=== PATIENT | female | born 1980 | race Hispanic/Latino ===

== ENCOUNTER 2019-03-04 08:13 | Outpatient (CLI) | payer OTHER ==
--- NOTE | 2019-03-04 08:59 | ULT ---
SONOGRAM RIGHT UPPER QUADRANT: Date: 03/04/19 HISTORY: Right upper quadrant pain. FINDINGS: Small, shadowing stones are present throughout the gallbladder lumen. No gallbladder wall thickening or pericholecystic fluid. Common duct is 0.3 cm. Liver unremarkable without focal mass or intrahepati c biliary dilatation. No free fluid. IMPRESSION: Cholelithiasis. No evidence of acute biliary obstruction. POS: T[facility]
== END 2019-03-04 08:14 | disposition home or self-care (01) ==
LOC: ULT 08:13
PROVIDERS: ATTEND Family Medicine
DX: R10.11 Right upper quadrant pain (principal); K80.20 Calculus of gallbladder without cholecystitis without obstruction
CPT/HCPCS: 76705

== ENCOUNTER 2019-03-23 06:44 | Day surgery (SDC) | payer OTHER ==
--- NOTE | 2019-03-22 12:48 | HP ---
HISTORY OF PRESENT ILLNESS: Esperanza Nava is a 38-year-old female, recently moved from [place] with her who is security employment [employer]. The patient has had since October episodes of right upper quadrant pain, right flank radiation, right shoulder involvement, episodic spicy food, postprandial intake. She has had ultrasound demonstrated 3 mm bile duct and gallstones. Recent laboratories reveal normal liver function tests, lipase and CBC. Plan is for laparoscopic cholecystectomy outpatient. White count 12, hemoglobin 12, and platelet count 362,000. Amylase normal, BUN 12, creatinine 0.67, sodium 140, potassium 4.0, chloride 101, carbon dioxide 27. Liver function tests normal. She is referred by Dr. Brown. SOCIAL HISTORY: Tobacco, none. Alcohol, none. MEDICATIONS: 1. Iron. 2. Multivitamin. 3. Zyrtec. PAST SURGICAL HISTORY: She has had in [place] 2001 total abdominal colectomy with staged ileoanal pouch and closure of her diversion. She has normal bowel function. 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 REVIEW OF SYSTEMS: Noncontributory. She is 1, para 1 with twins, 4-year-old boy and a girl. 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 PHYSICAL EXAMINATION: VITAL SIGNS: Weight 164 pounds, 5 feet 6 inches, 26 BMI, blood pressure 123/77, heart rate 74, temperature 99.7 degrees. HEAD, EARS, EYES, NOSE AND THROAT: Unremarkable. Sclerae nonicteric. SKIN: Nonjaundiced. LUNGS: Clear to auscultation. CARDIAC: Regular rate and rhythm without murmur or gallop. ABDOMEN: Soft and nontender. Midline incision from above the umbilicus to the pubis, well healed without hernias. Mild tenderness right upper quadrant with mild guarding. No anup peritoneal signs. EXTREMITIES: Unremarkable. No ankle edema. Palpable pedal pulses. No lymphadenopathy in neck, axilla, or groin. ASSESSMENT AND PLAN: Cholecystitis chronic with cholelithiasis. We would recommend laparoscopic video cholecystectomy. Risk of infection, bleeding, visceral and biliary injury, open procedure discussed. Questions answered. Job ID: [id number]
[2019-03-22 13:41] VITALS: BMI 25.0
[2019-03-23] MEDS ORDERED: Levofloxacin 500 mg/D5W 100 ml Premix Bag ONE (07:05)
[2019-03-23 07:39] LABS: BHCG - Serum Negative (NEGATIVE); Pregs Control Background? CLEAR/WHITE (CLR/WHITE); Pregs Control Bar Appear? YES (CONTROL BAR)
[2019-03-23] MEDS ORDERED: Ketorolac Tromethamine 30 MG/ML VIAL ONE (07:45)
[2019-03-23] MEDS ORDERED: Bupivacaine HCl 0.5%/Epinephrine 1:200,000/PF 30 ml Vial ONE (08:16)
[2019-03-23] MEDS ORDERED: Midazolam HCl 2 mg/2 ml Vial ONE (08:21)
[2019-03-23] MEDS ORDERED: Fentanyl 100 MCG/2 ML VIAL ONE (08:23)
[2019-03-23] MEDS ORDERED: Scopolamine 1.5 mg/72 hour Patch ONE (08:35)
[2019-03-23] MEDS ORDERED: PROPOFOL 200 MG/20 ML VIAL ONE (13:56)
[2019-03-23] MEDS ORDERED: Dexamethasone 20 MG/5 ML VIAL ONE (13:56)
[2019-03-23] MEDS ORDERED: Ondansetron PF 4 MG/2 ML Vial ONE (13:56)
[2019-03-23] MEDS ORDERED: Glycopyrrolate 0.2 MG/ML 5 ML SYRINGE ONE (13:56)
[2019-03-23] MEDS ORDERED: Lidocaine 1% PF 5 ML VIAL ONE (13:56)
[2019-03-23] MEDS ORDERED: Rocuronium Bromide 10 MG/ML (10ML VIAL) ONE (13:56)
--- NOTE | 2019-03-23 15:04 | OP ---
DATE OF PROCEDURE: 03/23/2019 PREOPERATIVE DIAGNOSES: Chronic cholecystitis, cholelithiasis, history of Crohn disease with total colectomy, ileoanal pouch, and closure ileostomy diversion in the past years. POSTOPERATIVE DIAGNOSES: Chronic cholecystitis, cholelithiasis, history of Crohn disease with total colectomy, ileoanal pouch, and closure ileostomy diversion in the past years. PROCEDURE PERFORMED: Laparoscopic video cholecystectomy. ANESTHESIA: General, local 0.5% Marcaine with epinephrine 30 mL. DESCRIPTION OF PROCEDURE: The patient was taken to the operating room, where under general anesthesia, abdomen was prepared with ChloraPrep and draped in routine fashion. Local anesthetic with 0.5% Marcaine with epinephrine, total volume 30 mL used, infiltrated in the skin and subcutaneous tissue at each port site. Pneumoperitoneum to 15 mmHg obtained with a Veress needle, replaced with a 5 port and laparoscope inserted. Right subxiphoid incision was made and 11 port placed, right subcostal incision was made, midclavicular, and anterior axillary line, 5 port was placed. Fundus of the gallbladder was grasped at cephalad. Infundibulum was grasped at the lateral. Liver appeared to be normal. Cystic artery and duct dissected free. Critical view obtained. Cystic artery and duct doubly clipped and proximally divided. Gallbladder dissected free from liver bed obtaining good hemostasis prior to division of the final peritoneal attachments. Gallbladder and contents removed. Good hemostasis was ensured with cautery. Irrigant and pneumoperitoneum evacuated. All instruments removed and all skin incisions were approximated with interrupted subdermal 4-0 Monocryl and [place] glue applied. Job ID: [id number]
== END 2019-03-23 11:55 | disposition home or self-care (01) ==
LOC: SDC 06:44
PROVIDERS: ATTEND Specialist
PROC: 0FT44ZZ Resection of Gallbladder, Percutaneous Endoscopic Approach (ICD-10-PCS; principal; 2019-03-23)
DX: K80.10 Calculus of gallbladder with chronic cholecystitis without obstruction (principal); D64.9 Anemia, unspecified; Z79.51 Long term (current) use of inhaled steroids; Z79.899 Other long term (current) drug therapy
CPT/HCPCS: 84703; 88304; J0131; J0670; J1100; J1885; J1956; J2001; J2250; J2405; J2704; J3010

== ENCOUNTER 2020-05-15 09:20 | Outpatient (CLI) | payer OTHER ==
--- NOTE | 2020-05-15 09:55 | MMO ---
Bilateral MAMMO Bilat Screen [facility]. CLINICAL HISTORY: Patient is 39 years old and is seen for screening. The patient has the following family history of breast cancer: mother, at age 69. VIEWS: The views performed were: bilateral craniocaudal with tomosynthesis and bilateral mediolateral oblique with tomosynthesis. This study has been interpreted with the assistance of computer-aided detection. MAMMOGRAM FINDINGS: The breasts are heterogeneously dense, which could obscure a lesion on mammography. There are no suspicious masses, suspicious calcifications, or new areas of architectural distortion. IMPRESSION: THERE IS NO MAMMOGRAPHIC EVIDENCE OF MALIGNANCY. A ROUTINE FOLLOW-UP MAMMOGRAM IN 1 YEAR IS RECOMMENDED. THE RESULTS OF THIS EXAM WERE SENT TO THE PATIENT. ACR BI-RADS Category 1 - Negative MAMMOGRAPHY NOTE: 1. A negative mammogram report should not delay a biopsy if a dominant of clinically suspicious mass is present. 2. Approximately 10% to 15% of breast cancers are not detected by mammography. 3. Adenosis and dense breasts may obscure an underlying neoplasm. Reported by: SANAZ MERCER MD Electonically Signed: [id number]
== END 2020-05-15 09:21 | disposition home or self-care (01) ==
LOC: BICMAMMO 09:20
PROVIDERS: ATTEND Obstetrics & Gynecology
DX: Z12.31 Encounter for screening mammogram for malignant neoplasm of breast (principal); Z80.3 Family history of malignant neoplasm of breast
CPT/HCPCS: 77063; 77067

== ENCOUNTER 2020-05-25 12:54 | Outpatient (CLI) | payer OTHER ==
--- NOTE | 2020-05-25 13:51 | ULT ---
THYROID ULTRASOUND: 05/25/20 INDICATIONS: Thyroid nodule given as reason for exam. No comparison studies. Both lobes of the thyroid are homogeneous and show normal size and appearance. Right lobe measures 4. 5 x 1.1 x 1.1 cm. Right lobe measures 4.3 x 1.9 x 1.4 cm. The isthmus appears normal. No evidence of nodule identified. IMPRESSION: Normal thyroid ultrasound exam. POS: AH
== END 2020-05-25 12:55 | disposition home or self-care (01) ==
LOC: SCSULT 12:54
PROVIDERS: ATTEND Family Medicine
DX: E04.1 Nontoxic single thyroid nodule (principal)
CPT/HCPCS: 76536

== ENCOUNTER 2021-07-30 12:08 | Outpatient (CLI) | payer OTHER, BC | END 2021-07-30 12:09 | disposition home or self-care (01) | LOC: BICMAMMO 12:08 | PROVIDERS: ATTEND Obstetrics & Gynecology | DX: Z12.31 Encounter for screening mammogram for malignant neoplasm of breast (principal); Z80.3 Family history of malignant neoplasm of breast | CPT/HCPCS: 77063; 77067 ==